=== PATIENT | female | born 1960 | race Caucasian/White ===

== ENCOUNTER 2020-09-13 21:07 | Emergency (ER) | payer MEDICARE ==
[2020-09-13] MEDS ORDERED: Acetaminophen/HYDROcodone 325-5 MG Tab PO STA (21:42)
--- NOTE | 2020-09-13 21:45 | EDM.PDOC ---
ED HPI GENERAL MEDICAL PROBLEM - General Chief Complaint: Lower Extremity Injury/Pain Stated Complaint: RIGHT ANKLE POSSIBLY BROKEN Time Seen by Provider: 09/13/20 21:32 Source of Information: Reports: Patient, Family (Daughter) History Limitations: Reports: Intoxication - History of Present Illness INITIAL COMMENTS - FREE TEXT/NARRATIVE: Mrs. Lozano is a very pleasant 60-year-old woman who now presents the ED after injuring her right ankle. She states that she fell off of a deck around 21:00, somehow injuring her right ankle. She denies any other injuries. She acknowle dges that she was drinking alcohol tonight. Here in the ED, the patient is found to be hemodynamically stable, afebrile, saturating 98% on room air. She appears to be somewhat intoxicated, but is in no acute distress. Prior to tonight's ankle injury, the patient denies having a recent fever, chills, sore throat, ear pain, nasal or sinus congestion, cough, dyspnea, chest pain, palpitations, nausea, vomiting, constipation, diarrhea, abdominal pain, urinary symptoms, recent weight gain or weight loss, recent bloody bowel movements or black bowel movements, recent joint aches, headaches, or rashes. The patient is visiting from [facility]. 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: Other (see below) Other Treatments DUPLIGRAPH OPERATOR: none Right Ankle Pain Score (Numeric/FACES): 10 - Related Data Allergies Allergy/AdvReac Type Severity Reaction Status Date / Time No Known Allergies Allergy Verified 09/13/20 21:29 Home Meds: Home Meds Gabapentin [Neurontin] 300 mg PO BEDTIME 09/13/20 [History] Varenicline Tartrate [Chantix] 1 mg PO BID 09/13/20 [History] atorvaSTATin [Lipitor] 0 mg PO BEDTIME 09/13/20 [History] buPROPion HCL [Wellbutrin Xl] 150 mg PO DAILY 09/13/20 [History] buPROPion HCL [Wellbutrin Xl] 300 mg PO DAILY 09/13/20 [History] Past Medical History Cardiovascular History: Reports: High Cholesterol Genitourinary History: Reports: Chronic Renal Insuffiency (Stage III) Psychiatric History: Reports: Anxiety, Depression Endocrine/Metabolic History: Reports: Obesity/BMI 30+ Oncologic (Cancer) History: Reports: Squamous Cell Carcinoma (back - excised) - Past Surgical History Female Surgical History: Reports: Hysterectomy (complete) Oncologic Surgical History: Reports: Other (See Below) (SCC excised from back) Social & Family History - Tobacco Use Tobacco Use Status *Q: Current Every Day Tobacco User Tobacco Use Within Last Twelve Months: Vaping (Nicotine) Years of Tobacco use: 18 Packs/Tins Daily: 0.2 Packs/Tins Daily Comment: Down from 1 ppd Tobacco Use Comment: Started smoking at 42 yrs old - Alcohol Use Alcohol Use History: Yes Alcohol Use Frequency: Socially (occasionally to excess) - Recreational Drug Use Recreational Drug Use: No - Living Situation & Occupation Living situation: Reports: , with Family (Daughter) Occupation: Unemployed Review of Systems - Review of Systems Review Of Systems: Comprehensive ROS is negative, except as noted in HPI. ED EXAM, GENERAL - Physical Exam Exam: See Below Exam Limited By: No Limitations General Appearance: Alert, WD/WN, No Apparent Distress Extremities: Other (There is considerable swelling over the lateral malleolus of the right ankle, with no visible abnormalities to the remainder of the ankle, such as swelling, erythema, ecchymosis, or abrasion. She is most tender over the medial malleolus, and to the anterior syndesmosis, with no tenderness to the po) Course - Vital Signs Last Recorded V/S: Last Vital Signs Temp 37.9 C 09/13/20 22:42 Pulse 95 09/13/20 22:42 Resp 20 09/13/20 22:42 BP 139/81 09/13/20 22:42 Pulse Ox 98 09/13/20 22:42 - Orders/Labs/Meds Orders: Active Orders 24 hr Category Date Time Status Ankle Min 3V Rt [CR] Stat Exams 09/13/20 21:34 Taken DME for Discharge [COMM] Stat Oth 09/13/20 22:26 Ordered Meds: Medications Discontinued Medications Generic Name Dose Route Start Last Admin Trade Name Freq PRN Reason Stop Dose Admin Hydrocodone Bitart/Acetaminophen 1 tab 09/13/20 21:42 09/13/20 21:55 Acetaminophen/Hydrocodone 325-5 Mg Tab PO 09/13/20 21:43 1 tab ONETIME STA Administration - Re-Assessments/Exams Free Text/Narrative Re-Assessment/Exam: 09/13/20 21:43 As above, the patient fell off of a deck around 2100 this evening, injuring her right ankle. She denies any other injuries. She appears to be somewhat intoxicated. On examination, she has considerable swelling over the lateral malleolus, although no visible abnormalities elsewhere on her ankle. She is most tender over the medial malleolus and anterior syndesmosis. No tenderness to the posterior syndesmosis, and she states that she is essentially numb over the lateral malleolus. Pain is induced in the anterior medial ankle with passive ROM. I have ordered x-rays of the right ankle to evaluate, and in the meantime, the patient will be given a single tablet of [place]. 09/13/20 22:25 4-view radiographs of the right ankle appear to be grossly normal, with no fractures or dislocations identified. Formal read per the Radiologist pending. Based on the above, the patient appears to have a grade 1 sprain of her ankle. I will order a right ankle stirrup splint. 09/13/20 22:31 X-ray results discussed with the patient and her daughter. As above, the patient appears to have a grade 1 sprain of her right ankle. I have ordered a right ankle stirrup splint. I would like her to elevate and ice her right ankle for the next 2 to 3 days, to help minimize swelling. She may take [id number] ibuprofen as needed for discomfort. She is to wear the stirrup splint for a week, after which she should come out of it and walk on her own. She should expect to still have some pain in the right ankle at that time, however, if she continues to have significant pain after 2 weeks, I would like her to follow-up with an Orthopedic Surgeon for reevaluation. The patient stated that she intends to start returning home this coming Tuesday. 09/13/20 23:05 Notified by Yesenia SIMPSON that the patient is requesting a prescription for crutches. She does not want to take crutches home at this time, preferring to see how she feels in the morning, but if she feels she needs them, she would like to have the option. It does not appear that I can electronically order crutches, therefore I hand wrote a prescription for 1 pair of crutches, to be used as directed. Departure - Departure Time of Disposition: 22:33 Disposition: Home, Self-Care 01 Condition: Good Clinical Impression: Sprain of right ankle - Discharge Information *PRESCRIPTION DRUG MONITORING PROGRAM REVIEWED*: Not Applicable *COPY OF PRESCRIPTION DRUG MONITORING REPORT IN PATIENT GORDO: Not Applicable Instructions: Ankle Sprain, [id number] Referrals: PCP,Not In Area [Primary Care Provider] - Forms: ED Department Discharge Additional Instructions: You were seen in the emergency room after falling off a deck and injuring your right ankle. Work-up in the ER included x-rays of your right ankle, which returned normal. No broken bones or dislocations were seen. Based on your history, physical exam, and ER x-rays, you have sprained your right ankle. You have been placed into an ankle stirrup splint. This should be applied each morning, and removed at bedtime. We recommend you ice and elevate your right ankle as much as possible over the next 2 to 3 days, to help minimize swelling. We recommend that you take [id number] ibuprofen, 3 tablets (600 mg) up to every 8 hours, with food, as needed for discomfort. We recommend that you wear the ankle stirrup splint for 1 week, after which we recommend that you come out of it and begin walking on your own. At that time, you should expect to still have discomfort. If you continue to have inordinate discomfort after 2 weeks, we recommend that you follow-up with an Orthopedic Surgeon for reevaluation. If any other problems, please do not hesitate to return to the ER. Sepsis Event Note (ED) - Focused Exam Vital Signs: Vital Signs Temp Pulse Resp BP Pulse Ox 09/13/20 22:42 37.9 C 95 20 139/81 98 - My Orders Last 24 Hours: My Active Orders 09/13/20 21:34 Ankle Min 3V Rt [CR] Stat 09/13/20 22:26 DME for Discharge [COMM] Stat - Assessment/Plan Last 24 Hours: My Active Orders 09/13/20 21:34 Ankle Min 3V Rt [CR] Stat 09/13/20 22:26 DME for Discharge [COMM] Stat
--- NOTE | 2020-09-14 10:40 | CR ---
Right ankle: 4 views of the right ankle were obtained. Comparison: No prior ankle study is available. Diffuse soft tissue swelling is identified. Small plantar spur is seen. Spur is also noted posteriorly off the calcaneus at the attachment of the Achilles tendon. I do not see a discrete fracture or dislocation. Impression: 1. Soft tissue swelling. 2. Calcaneal spurs. 3. No definite acute osseous abnormality is appreciated. Diagnostic code #2
== END 2020-09-13 23:10 | disposition home or self-care (01) ==
LOC: JD.ED 21:07
DX: S93.401A Sprain of unspecified ligament of right ankle, initial encounter (principal); E78.00 Pure hypercholesterolemia, unspecified; E66.9 Obesity, unspecified; Z68.30 Body mass index [BMI] 30.0-30.9, adult; Z79.899 Other long term (current) drug therapy; Z72.0 Tobacco use; N18.9 Chronic kidney disease, unspecified; W17.4XXA Fall from dock, initial encounter
CPT/HCPCS: 73610; 99283; A9270